=== PATIENT | female | born 1970 | race Caucasian/White ===

== ENCOUNTER 2022-07-16 20:41 | Emergency (ER) | payer BC ==
[2022-07-16 20:53] VITALS: BP 143/95; PULSE 74; RESP 18; TEMP 97.8; BMI 29.8
[2022-07-16] MEDS ORDERED: AMOX TR/POT CLAV 875MG/125MG TABLETS (FP) PO ONE (21:58)
[2022-07-16] MEDS ORDERED: AMOX TR/POT CLAV 875MG/125MG TABLETS (FP) ONE (22:17)
== END 2022-07-16 22:29 | disposition home or self-care (01) ==
LOC: JERFT 20:41
DX: S61.451A Open bite of right hand, initial encounter (principal); W55.01XA Bitten by cat, initial encounter
CPT/HCPCS: 99283-25